=== PATIENT | male | born 1970 | race Caucasian/White ===

== ENCOUNTER → 2021-04-04 | Outpatient (CLI) | payer OTHER ==
--- NOTE | 2021-04-04 10:28 | KCIC ---
INDICATION : Reason: RUQ PAIN, ABDOMINAL DISTENSION (GASEOUS), RLQ ABDOMINAL TENDERNESS / Spl. Instru ctions: / History: COMPARISON: None TECHNIQUE: Multiple ultrasound images obtained through the abdomen in grayscale and color. FINDINGS: Pancreas: Largely obscured by bowel gas Liver: Echogenic Gallbladder: No wall thickening or stones. IVC: Limited visualization. Calcific atherosclerosis of partially seen aorta. Common Bile Duct: Not dilated. Right Kidney: No hydronephrosis. Spleen measures approximately 12.2 cm Left kidney: No hydronephrosis IMPRESSION: * No biliary ductal dilation or gallstones. * Liver is echogenic. Nonspecific but can be seen with fatty infiltration. Electronically signed by: Cooper Holt MD (04/04/2021 10:26 AM) [id number]
== END ==
LOC: KCIC US 07:59 → EDBD 08:00
PROVIDERS: ATTEND Nurse Practitioner Adult Health
DX: R10.11 Right upper quadrant pain (principal); R14.0 Abdominal distension (gaseous); R10.813 Right lower quadrant abdominal tenderness; I70.0 Atherosclerosis of aorta
CPT/HCPCS: 76700